=== PATIENT | male | born 1950 | race Caucasian/White ===

== ENCOUNTER 2020-09-22 11:45 | Emergency (ER) | payer MEDICAID, MEDICARE, OTHER ==
[~2020-09-22] VITALS: Ht 167.6 cm; Wt 82.0 kg
[~2020-09-22 11:45] MED LIST: AMLO10TA80 PO; FURO80TA3 PO; GABA-532 PO; LISI10TA26 PO; METO25TA6 PO; RANO10003 PO
[2020-09-22] MEDS ORDERED: ACETAMINOPHEN 325MG TABLET PO STA (12:12)
[2020-09-22] MEDS ORDERED: NITROGLYCERIN 0.4MG TABLET SL SL PRN (12:15)
[2020-09-22] MEDS ORDERED: ASPIRIN 81MG TABLET PO ONE (12:15)
[2020-09-22 14:19] LABS: BASOPHILS % 0.7 % (0.0-2.0); EOSINOPHILS % 2.5 % (0.0-5.0); HEMATOCRIT. 42.5 % (42.0-52.0); HEMOGLOBIN. 14.7 g/dL (14.0-18.0); LYMPHOCYTES % 36.5 % (20.0-50.0); MEAN CORPUSCULAR HEMOGLOBIN 32.8 pg (28.0-32.0); MEAN CORPUSCULAR VOLUME 95.2 fL (80.0-94.0); MEAN PLATELET VOLUME 9.4 fl (7.4-10.4); MONOCYTES % 7.9 % (2.0-8.0); NEUTROPHILS % 52.4 % (40.0-76.0); PLATELET 208 x1000/uL (130-400); RED BLOOD CELL COUNT 4.47 mill/uL (4.7-6.1); RED CELL DISTRIBUTION WIDTH 12.6 % (11.6-14.6)
[2020-09-22 14:25] LABS: CHLORIDE 109 mEq/L (98-107)
[2020-09-22 18:51] VITALS: BP 122/66
== END 2020-09-22 18:51 | disposition short-term general hospital (02) ==
LOC: ER 11:45
DX: R07.89 Other chest pain (principal); E78.00 Pure hypercholesterolemia, unspecified; I25.2 Old myocardial infarction; Z86.73 Personal history of transient ischemic attack (TIA), and cerebral infarction without residual deficits; I11.0 Hypertensive heart disease with heart failure; Z98.61 Coronary angioplasty status; Z88.1 Allergy status to other antibiotic agents; Z79.01 Long term (current) use of anticoagulants
CPT/HCPCS: 36415; 71045; 80053; 83880; 84484; 85025; 93005; 99285